=== PATIENT | female | born 1940 | race Caucasian/White ===

== ENCOUNTER → 2017-06-02 | Outpatient (CLI) | payer MEDICARE, OTHER ==
[~2017-06-02] MED LIST: AMLO1CAP9 PO; ATOR40TA70 PO; CATHETER FLUSH 10 ML SYR IV PRN; CHOL100011 PO; GINK120C PO; GLUC-113 PO; LEG CRAMP PO; MULT-974 PO; MV,C200T3 PO; OMEP20TA2 PO; OMG1KC PO; TEMA30CA PO; TRIA1CAP4 PO
[2017-06-02 09:10] VITALS: BP 185/79
--- NOTE | 2017-06-02 13:27 | STRESS TEST ---
DATE OF SERVICE: 06/02/2017 PROCEDURE: An exercise Myoview stress test report. REFERRING PHYSICIAN: Dr. Augie Magana. Baseline heart rate is 84, baseline blood pressure 185/79, baseline EKG sinus rhythm with no ischemic changes. In summary, the patient was injected with 10.86 mCi of technetium-99 Myoview and the resting images were obtained. Then, the patient started exercising with a baseline heart rate, blood pressure and EKG mentioned above. The patient was able to exercise only for 3 minutes on standard Alonso protocol. With peak exercise level, EKG was showing minimal nondiagnostic changes. Blood pressure at peak was 202/69. During recovery, heart rate and blood pressure returned to baseline. EKG returned to baseline. The resting and stress images were reviewed and compared in the short axis, horizontal long axis, and vertical long axis views. Review of the images showed no significant ischemia or infarction. SSS is 0. TID value 1.07. On the gated images, the left ventricle appeared to be normal size with normal contractility. Calculated ejection fraction is 67%. CONCLUSION: 1. Fair exercise tolerance, a total of 3 minutes on standard Alonso protocol, total of 4.4 METS achieving 87% of maximum expected heart rate. 2. Baseline hypertension with hypertensive response to exercise, returned to baseline during recovery. 3. No significant ischemia or infarction on SPECT images. 4. Normal left ventricular size with normal contractility. Calculated ejection fraction is 67%. Job ID: [id number] DocumentID: [id number] Dictated Date: 06/02/2017 11:02:54 Quartz Cutter Date: 06/02/2017 13:26:46 Dictated By: PADMINI SCHRADER MD
== END ==
LOC: CARD 07:54
PROVIDERS: ATTEND Physician Assistant
DX: I25.10 Atherosclerotic heart disease of native coronary artery without angina pectoris (principal); E78.5 Hyperlipidemia, unspecified; I70.1 Atherosclerosis of renal artery
CPT/HCPCS: 78452; 93017

== ENCOUNTER → 2020-10-18 | Outpatient (CLI) | payer MEDICARE, OTHER ==
[~2020-10-18] VITALS: Ht 154 cm; Wt 64.0 kg
[~2020-10-18] MED LIST changes: +REGADENOSON 0.4 MG/5 ML SYR (LEXISCAN) IV ONE
[2020-10-18 13:01] VITALS: BP 154/73
--- NOTE | 2020-10-18 16:02 | Cardiology Stress Test Report ---
Stress Test Report Date of Procedure/Referring: Date of Procedure: Oct 18, 2020 Shivani Llanes Admitting Physician Augie Magana MD Indications: HTN Baseline Heart Rate: 82 Baseline Blood Pressure: Blood Pressure Systolic: 154 Blood Pressure Diastolic: 73 Baseline Vitals Vital Signs Date Time Temp Pulse Resp B/P (MAP) Pulse Ox O2 Delivery O2 Flow Rate FiO2 10/18/20 13:01 82 18 154/73 (100) 97 Room Air Baseline EKG: Baseline EKG: NSR Summary After explaining the procedure to the patient, she signed a consent and then brought to the stress nuclear laboratory. Patient received 0.4 mg Lexiscan for stress test, ECG, heart rate and blood pressure were monitored continuously. Resting and stress dose of radio tracer were injected, imaging was acquired and reviewed in short axis, horizontal long axis and vertical long axis views. TID: 1.06 SSS: 5 SDS: 5 EF: 70 1. Patient tolerated Lexiscan well 2. Extracardiac attenuation resulted on decreased uptake at the base of the anterior wall and anteroseptum which is fixed, no significant ischemia or infarction was noted 3. Normal left ventricular size, EF 70% PADMINI SCHRADER MD Oct 18, 2020 16:02
== END ==
LOC: CARD 12:30
PROVIDERS: ATTEND Physician Assistant
DX: I10 Essential (primary) hypertension (principal)
CPT/HCPCS: 78452; 93017; A9502